=== PATIENT | female | born 1995 | race Caucasian/White ===

== ENCOUNTER 2020-03-12 09:32 | Emergency (ER) | payer OTHER ==
[~2020-03-12] VITALS: Ht 172.7 cm; Wt 97.5 kg
--- NOTE | ~2020-03-12 | EKG ---
[facility] [place] [address] ELECTROCARDIOGRAM REPORT Name: CHAYO PHAM Room #: REG [facility]#: [id number] Admission: 03/12/20 Attend Phys: Discharge: Date of : [birth year] Report #: [id number] THIS REPORT FOR: cc: Viviana Frazier MD,Viviana Lima,Clarence NELSON ~ THIS REPORT FOR: //name// [facility] ED Test Date: 2020-03-12 Test Time: 09:54:30 Pat Name: CHAYO PHAM Department: Room: Gender: F Sheet Metal Worker Supervisor: RICHA : 1995 Requested By: Debbie Downey Order Number: [id number] MD: Measurements Intervals [place] Rate: 70 P: -10 [place]: 131 QRS: 8 QRSD: 108 T: 1 QT: 410 QTc: 443 Interpretive Statements Sinus rhythm Low voltage, precordial leads RSR' in V1 or V2, right VCD or RVH Borderline T abnormalities, anterior leads No previous ECG available for comparison [email or web address] By: [id number] Epiphany Epiphany, /EPI
[~2020-03-12 09:32] MED LIST: BENTYL20 MG; PERCOCET 5-3251 EACH PO; PRILOSEC40 MG PO; TRAMADOL 50 MG50 MG PO; ZANTAC 7575 MG PO
[2020-03-12 13:46] LABS: ABSOLUTE NEUTROPHILS 3.2 thou/uL (1.4-8.2); BASOPHILS 0.8 % (0.0-2.0); EOSINOPHILS 1.6 % (0.0-3.0); HEMATOCRIT 27.6 % (37.0-47.0); HEMOGLOBIN 8.9 gm/dL (12.0-15.0); LYMPHOCYTES 32.4 % (24.0-44.0); MCH 26.8 pg (26.0-34.0); MCHC 32.1 g/dL (28.0-37.0); MCV 83.5 fL (80.0-100.0); MONOCYTES 7.7 % (1.0-8.0); PLATELET COUNT 349 thou/uL (150-400); POLYS 57.5 % (36.0-66.0); RBC 3.31 mil/uL (4.20-5.00); RDW 13.8 % (10.5-14.5); WBC 5.5 thou/uL (4.0-11.0)
[2020-03-12 13:48] LABS: ANION GAP 7 mmol/L (7-16); BUN 11 mg/dL (7-18); CALCIUM 8.1 mg/dL (8.5-10.1); CHLORIDE 104 mmol/L (98-107); CO2 26 mmol/L (21-32); CREATININE 0.7 mg/dL (0.6-1.0); GLUCOSE 83 mg/dL (74-106); POTASSIUM 3.9 mmol/L (3.5-5.1); SODIUM 137 mmol/L (136-145)
[2020-03-12 13:58] LABS: DIRECT BILIRUBIN < 0.1 mg/dL (<0.1-0.2); SGOT 19 U/L (15-37); SGPT 14 U/L (30-65); TOTAL BILIRUBIN 0.2 mg/dL (0.2-1.0); TOTAL PROTEIN 6.8 g/dL (6.4-8.2); TROPONIN-I <0.06 ng/mL (<0.06)
[2020-03-12] MEDS ORDERED: MOBIC15 MG PO (15:23)
--- NOTE | 2020-03-12 15:52 | EKG ---
[facility] [place] [address] ELECTROCARDIOGRAM REPORT Name: CHAYO PHAM Room #: REG [facility]#: [id number] Admission: 03/12/20 Attend Phys: Discharge: Date of : [birth year] Report #: [id number] THIS REPORT FOR: cc: Karin,Viviana Frazier,Viviana Alexander,Jeovanny Trevino MD [facility] ~ THIS REPORT FOR: //name// [facility] ED Test Date: 2020-03-12 Test Time: 09:54:30 Pat Name: CHAYO PHAM Department: Room: Gender: F Addiction Treatment Counselor: RICHA : 1995 Requested By: Debbie Downey Order Number: [id number] MD: Jeovanny Alexander Measurements Intervals [place] Rate: 70 P: -10 [place]: 131 QRS: 8 QRSD: 108 T: 1 QT: 410 QTc: 443 Interpretive Statements Sinus rhythm Low voltage, precordial leads RSR' in V1 or V2, right VCD Borderline T abnormalities, anterior leads No previous ECG available for comparison Electronically Signed On 03-12-2020 15:52:35 INTERPRETATIVE DANCER by Jeovanny Alexander [email or web address] <ELECTRONICALLY SIGNED> By: Jeovanny Alexander MD, [facility] 03/12/20 [id number] Jeovanny Alexander MD, [facility] /EPI
[2020-03-12 15:55] VITALS: BP 132/84
== END 2020-03-12 16:01 | disposition home or self-care (01) ==
LOC: ER 09:32
PROVIDERS: Emergency Medicine
DX: M94.0 Chondrocostal junction syndrome [Tietze] (principal); Z79.899 Other long term (current) drug therapy